=== PATIENT | female | born 1940 | race African-American/Black ===

== ENCOUNTER 2022-07-16 09:04 | Emergency (ER) | payer OTHER, BC ==
[2022-07-16] MEDS ORDERED: ACETAMINOPHEN 1000 MG/100 ML BAG IVPB ONE (09:25)
[2022-07-16] MEDS ORDERED: ACETAMINOPHEN INJECTION 100 ML IVPB ONE (09:38)
[2022-07-16] MEDS ORDERED: AZITHROMYCIN IVPB 500 MG in DEXTROSE 5%-WATER - 250 ML IVPB ONE (10:10)
[2022-07-16] MEDS ORDERED: CEFTRIAXONE 1,000 MG in DEXTROSE 5%-WATER - 50 ML IVPB ONE (10:10)
[2022-07-16] MEDS ORDERED: AZITHROMYCIN IVPB 500 MG/250 ML BAG IVPB ONE (10:21)
[2022-07-16] MEDS ORDERED: CEFTRIAXONE 1 GM/50 ML BAG ONE (10:21)
[2022-07-16 10:28] LABS: BASO % 1.1 % (0-2.0); EOS % 2.4 % (0-4.5); HEMATOCRIT 39.2 % (32.4-45.2); HEMOGLOBIN 13.3 GM/dL (10.7-15.3); LYMPH % 19.7 % (8-40); MCH 31.3 pg (25.7-33.7); MCHC 34.1 g/dl (32.0-36.0); MEAN CELL VOLUME 91.9 fl (80-96); MEAN PLT VOLUME 8.8 fl (7.5-11.1); MONO % 7.1 % (3.8-10.2); NEUT % 69.7 % (42.8-82.8); PLATELET COUNT 179 10^3/uL (134-434); RBC 4.26 M/mm3 (3.60-5.2); RDW 13.3 % (11.6-15.6); WHITE BLOOD COUNT 6.6 K/mm3 (4.0-10.0)
[2022-07-16 10:46] LABS: ALBUMIN 3.7 g/dl (3.4-5.0); CALCIUM 9.4 mg/dL (8.5-10.1)
[2022-07-16 10:49] LABS: CREATININE 1.1 mg/dL (0.55-1.3)
[2022-07-16 10:51] LABS: BILIRUBIN,TOTAL 0.8 mg/dL (0.2-1); TOT PROT 7.5 g/dl (6.4-8.2)
[2022-07-16 11:18] VITALS: BP 162/92; PULSE 88; RESP 18; TEMP 98.1; BMI 33.5
[2022-07-16] MEDS ORDERED: methylPREDNISolone NA SUCC 125 MG/2 ML VIAL IVPUSH ONE (11:36)
[2022-07-16] MEDS ORDERED: ALBUTEROL SO4 2.5/IPRATROPIUM 0.5 INH SOL 3 ML VIAL.NEB. NEB ONE ×2 (11:36→11:42)
[2022-07-16] MEDS ORDERED: methylPREDNISolone NA SUCC 125 MG/2 ML VIAL ONE (11:42)
== END 2022-07-16 13:44 | disposition home or self-care (01) ==
LOC: JER 09:04
PROC: 3E033GC Introduction of Other Therapeutic Substance into Peripheral Vein, Percutaneous Approach (ICD-10-PCS; principal; 2022-07-16)
PROC: 3E0F7GC Introduction of Other Therapeutic Substance into Respiratory Tract, Via Natural or Artificial Opening (ICD-10-PCS; 2022-07-16)
DX: R05.9 Cough, unspecified (principal)
CPT/HCPCS: 36415; 71045-TC-FY; 80053; 83880; 84439; 84443; 84484; 85025; 93005; 93010; 99285-25

== ENCOUNTER 2022-08-04 18:47 | Emergency (ER) | payer OTHER, BC ==
[2022-08-04 19:01] VITALS: RESP 18; BMI 33.5
[2022-08-04 21:05] LABS: BASO % 0.9 % (0-2.0); EOS % 3.9 % (0-4.5); HEMATOCRIT 38.8 % (32.4-45.2); HEMOGLOBIN 13.3 GM/dL (10.7-15.3); INR 1.01 (0.83-1.09); LYMPH % 22.9 % (8-40); MCH 31.7 pg (25.7-33.7); MCHC 34.3 g/dl (32.0-36.0); MEAN CELL VOLUME 92.4 fl (80-96); MEAN PLT VOLUME 9.4 fl (7.5-11.1); MONO % 7.7 % (3.8-10.2); NEUT % 64.6 % (42.8-82.8); PLATELET COUNT 176 10^3/uL (134-434); PROTHROMBIN TIME (PATIENT) 11.7 SEC (9.7-13.0); RDW 13.3 % (11.6-15.6); WHITE BLOOD COUNT 8.8 K/mm3 (4.0-10.0)
[2022-08-04 21:08] LABS: ACTIVATED PTT 32.5 SECONDS (25.2-36.5)
[2022-08-04 21:28] LABS: CALCIUM 9.6 mg/dL (8.5-10.1)
[2022-08-04 21:29] LABS: ALBUMIN 3.7 g/dl (3.4-5.0); BLOOD UREA NITROGEN 15.4 mg/dL (7-18); MAGNESIUM 2.4 mg/dL (1.8-2.4)
[2022-08-04 21:32] LABS: CREATININE 1.3 mg/dL (0.55-1.3)
[2022-08-04 21:33] LABS: BILIRUBIN,TOTAL 0.4 mg/dL (0.2-1)
[2022-08-04 21:34] LABS: TOT PROT 8.1 g/dl (6.4-8.2)
[2022-08-04] MEDS ORDERED: VALSARTAN 80 MG TABLET PO ONE (22:38)
[2022-08-04] MEDS ORDERED: VALSARTAN 160 MG TABLET PO ONE (22:39)
[2022-08-04] MEDS ORDERED: HYDROCHLOROTHIAZIDE 25 MG TABLET (FP) ONE (22:42)
[2022-08-04] MEDS ORDERED: VALSARTAN 80 MG TABLET ONE (22:42)
[2022-08-04 23:58] LABS: CALCIUM 9.1 mg/dL (8.5-10.1)
[2022-08-05 00:02] LABS: CREATININE 1.1 mg/dL (0.55-1.3)
[2022-08-05] MEDS ORDERED: HYDROCHLOROTHIAZIDE 12.5 MG CAPSULE (FP) PO ONE ×2 (03:07→22:38)
[2022-08-05 03:18] VITALS: BP 171/72; PULSE 77; TEMP 98.6
== END 2022-08-05 04:11 | disposition home or self-care (01) ==
LOC: JER 18:47
DX: R06.00 Dyspnea, unspecified (principal); R05.9 Cough, unspecified; R07.9 Chest pain, unspecified; J18.9 Pneumonia, unspecified organism; Z20.822 Contact with and (suspected) exposure to COVID-19
CPT/HCPCS: 0241U-QW; 36415; 71046-TC-FY; 71275-TC; 80048; 80053; 83735; 84484; 85025; 85379; 85610; 85730; 93005; 93010; 99285-25

== ENCOUNTER 2023-10-29 14:08 | Inpatient (IN) | payer OTHER, BC ==
[2023-10-29] MEDS ORDERED: ACETAMINOPHEN INJECTION 100 ML IVPB ONE (15:19)
[2023-10-29 15:27] LABS: BASO % 0.5 % (0-2.0); EOS % 0.2 % (0-4.5); HEMOGLOBIN 12.9 GM/dL (10.7-15.3); LYMPH % 9.4 % (8-40); MCH 31.1 pg (25.7-33.7); MCHC 33.2 g/dl (32.0-36.0); MEAN CELL VOLUME 93.9 fl (80-96); MEAN PLT VOLUME 9.4 fl (7.5-11.1); MONO % 8.8 % (3.8-10.2); NEUT % 81.1 % (42.8-82.8); PLATELET COUNT 145 10^3/uL (134-434); RBC 4.15 M/mm3 (3.60-5.2); RDW 13.3 % (11.6-15.6); WHITE BLOOD COUNT 13.5 K/mm3 (4.0-10.0)
[2023-10-29] MEDS: SODIUM CHLORIDE 0.9% 500 ML INFUS.BAG IV ONE (15:33)
[2023-10-29] MEDS: ACETAMINOPHEN 1000 MG/100 ML BAG IVPB ONE (15:34)
[2023-10-29 15:49] LABS: POTASSIUM 4.9 mmol/L (3.5-5.1)
[2023-10-29 15:51] LABS: BLOOD UREA NITROGEN 13.4 mg/dL (7-18); CALCIUM 9.2 mg/dL (8.5-10.1)
[2023-10-29 15:52] LABS: ALBUMIN 3.5 g/dl (3.4-5.0)
[2023-10-29 15:55] LABS: CREATININE 1.3 mg/dL (0.55-1.3)
[2023-10-29 15:56] LABS: BILIRUBIN,TOTAL 0.9 mg/dL (0.2-1)
[2023-10-29 16:47] LABS: EPI CELLS 27 /uL (0-25.1); HYALINE CASTS 1 /uL (0-3.1); PH,URINE 5.5 (5.0-8.0); URINE APPEARANCE CLEAR; URINE BACTERIA 36 /uL (0-1359); URINE BILIRUBIN NEGATIVE (NEGATIVE); URINE COLOR YELLOW; URINE GLUCOSE (UA) NEGATIVE (NEGATIVE); URINE KETONE NEGATIVE (NEGATIVE); URINE LEUK ESTERASE 1+ (NEGATIVE); URINE NITRITE NEGATIVE (NEGATIVE); URINE PROTEIN TRACE (NEGATIVE); URINE RBC 20 /uL (0-23.9); URINE UROBILINOGEN 0.2 mg/dL (0.2-1.0); URINE WBC 112 /uL (0-25.8)
[2023-10-29] MEDS ORDERED: cefTRIAXone SODIUM 1 GM VIAL ONE (18:10)
[2023-10-29] MEDS: CEFTRIAXONE 1 GM in DEXTROSE 5%-WATER - 100 ML IVPB ONE (18:24)
[2023-10-29] MEDS ORDERED: DOCUSATE SODIUM 100 MG CAPSULE (FP) PO PRN (23:33)
[2023-10-29] MEDS ORDERED: ACETAMINOPHEN 325 MG TABLET (FP) PO PRN (23:33)
[2023-10-30] MEDS: ACETAMINOPHEN 1000 MG/100 ML BAG IVPB PRN (03:56)
[2023-10-30 04:50] VITALS: BMI 33.7
[2023-10-30 07:17] LABS: BLOOD UREA NITROGEN 12.4 mg/dL (7-18); CALCIUM 8.6 mg/dL (8.5-10.1)
[2023-10-30 07:18] LABS: POTASSIUM 3.7 mmol/L (3.5-5.1)
[2023-10-30 07:20] LABS: CREATININE 1.1 mg/dL (0.55-1.3)
[2023-10-30 07:21] LABS: PHOSPHOROUS 2.5 mg/dL (2.5-4.9)
[2023-10-30 07:42] LABS: BASO % 0.6 % (0-2.0); EOS % 1.2 % (0-4.5); HEMATOCRIT 34.6 % (32.4-45.2); HEMOGLOBIN 11.5 GM/dL (10.7-15.3); LYMPH % 13.7 % (8-40); MCHC 33.2 g/dl (32.0-36.0); MEAN CELL VOLUME 93.4 fl (80-96); MEAN PLT VOLUME 8.7 fl (7.5-11.1); MONO % 9.5 % (3.8-10.2); PLATELET COUNT 116 10^3/uL (134-434); RDW 12.9 % (11.6-15.6); WHITE BLOOD COUNT 10.2 K/mm3 (4.0-10.0)
[2023-10-30] MEDS: LEVOTHYROXINE NA 75 MCG TABLET (FP) PO SCH (08:46)
[2023-10-30] MEDS: VALSARTAN 160 MG TABLET PO SCH (10:49)
[2023-10-30] MEDS: CEFTRIAXONE 1 GM in DEXTROSE 5%-WATER - 50 ML IVPB SCH (10:49)
[2023-10-30] MEDS: metoPROLOL SUCCINATE 25 MG TAB.SR.24H (FP) PO SCH (10:50)
[2023-10-30] MEDS: ALBUTEROL SO4 HFA INHALER IH PRN (10:53)
[2023-10-30] MEDS: AZITHROMYCIN IVPB 500 MG/250 ML BAG IVPB SCH (15:15)
[2023-10-30] MEDS: ROSUVASTATIN CA 5 MG TABLET PO SCH (21:05)
[2023-10-30] MEDS ORDERED: ACETAMINOPHEN 325 MG TABLET (FP) PO PRN (23:33)
[2023-10-31 08:15] LABS: BASO % 0.9 % (0-2.0); EOS % 3.9 % (0-4.5); HEMATOCRIT 34.8 % (32.4-45.2); HEMOGLOBIN 11.7 GM/dL (10.7-15.3); LYMPH % 21.1 % (8-40); MCH 31.2 pg (25.7-33.7); MCHC 33.5 g/dl (32.0-36.0); MEAN PLT VOLUME 8.7 fl (7.5-11.1); MONO % 10.4 % (3.8-10.2); NEUT % 63.7 % (42.8-82.8); PLATELET COUNT 138 10^3/uL (134-434); RBC 3.74 M/mm3 (3.60-5.2)
[2023-10-31 08:32] LABS: POTASSIUM 3.9 mmol/L (3.5-5.1)
[2023-10-31 08:34] LABS: CALCIUM 8.7 mg/dL (8.5-10.1)
[2023-10-31 08:35] LABS: ALBUMIN 3.1 g/dl (3.4-5.0); BLOOD UREA NITROGEN 12.9 mg/dL (7-18)
[2023-10-31 08:38] LABS: CREATININE 1.2 mg/dL (0.55-1.3)
[2023-10-31 08:39] LABS: BILIRUBIN,TOTAL 0.5 mg/dL (0.2-1)
[2023-10-31] MEDS: methylPREDNISolone NA SUCC 40 MG/1 ML VIAL IVPUSH SCH (14:43)
[2023-10-31] MEDS: ALBUTEROL SO4 2.5/IPRATROPIUM 0.5 INH SOL 3 ML VIAL.NEB. NEB SCH (16:03)
[2023-10-31] MEDS: HEPARIN NA (PORCINE) 5,000 UNITS/ML 1ML VIAL SQ SCH (21:23)
[2023-11-03] MEDS: methylPREDNISolone NA SUCC 40 MG/1 ML VIAL IVPUSH SCH (10:30)
[2023-11-03] MEDS: guaiFENesin 600 MG TABLET.ER (FP) PO SCH (12:52)
[2023-11-03 23:27] VITALS: RESP 18
[2023-11-04 06:20] VITALS: PULSE 78; TEMP 98.4
[2023-11-04 11:43] VITALS: BP 145/85
== END 2023-11-04 13:45 | disposition home or self-care (01) | DRG 194 ==
LOC: JER 14:08 → INTOOBSV 18:59 → JERBED 18:59 → J4S 10-30 02:39 → OBSVTOIN 10-31 10:06
PROVIDERS: ADMIT Internal Medicine; ATTEND Family Medicine
DX: J18.9 Pneumonia, unspecified organism (principal); J45.901 Unspecified asthma with (acute) exacerbation; J90 Pleural effusion, not elsewhere classified; I10 Essential (primary) hypertension; R07.89 Other chest pain; E78.5 Hyperlipidemia, unspecified; R91.1 Solitary pulmonary nodule; D72.829 Elevated white blood cell count, unspecified; E03.9 Hypothyroidism, unspecified; E66.9 Obesity, unspecified; Z68.33 Body mass index [BMI] 33.0-33.9, adult; Z88.0 Allergy status to penicillin
CPT/HCPCS: 0241U-QW; 36415; 71045-TC-FY; 71046-TC-FY; 71250-TC; 80048; 80053; 80061; 81003; 83036; 83735; 84100; 84484; 85025; 87040; 87086; 87899; 93005; 93010; 94010; 94640; 97116-GP; 97161-GP; 99285-25; G0378; J0131; J1644

== ENCOUNTER 2024-01-05 11:49 | Emergency (ER) | payer OTHER, BC ==
[2024-01-05 12:04] VITALS: BP 155/88; PULSE 98; RESP 18; TEMP 98.3; BMI 33.5
== END 2024-01-05 13:46 | disposition home or self-care (01) ==
LOC: JERFT 11:49
DX: R20.0 Anesthesia of skin (principal); R20.2 Paresthesia of skin; L30.9 Dermatitis, unspecified
CPT/HCPCS: 99283-25